=== PATIENT | male | born 2000 | race Caucasian/White ===

== ENCOUNTER 2024-02-08 13:28 | Emergency (ER) | payer OTHER, BC, SELFPAY ==
[2024-02-08] VITALS (7 sets, daily range): BP systolic 135–161; BP diastolic 73–99; PULSE 73–112; RESP 18; TEMP 36.6–36.9; O2SAT 94–100
[2024-02-08] MEDS: HYDROmorphone HCL INJ (*CRX) 1 MG/ML SYR IV PUSH (13:48)
[2024-02-08] MEDS: Please add drug allergy info to patient profile. XX (13:52)
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
[2024-02-08 14:21] LABS: Basophils Percent Auto 0.4 % (0.2-1.2); Eosinophils Absolute Auto 0.3 K/mm3 (0-0.3); Hematocrit 47.1 % (42.0-52.0); Hemoglobin 16.2 g/dL (14.0-18.0); Immature Granulocyte Absolute 0.03 K/mm3 (0.00-0.031); Immature Granulocyte Percent A 0.4 % (0-0.5); Lymphocytes Absolute Auto 2.35 K/mm3 (0.9-3.2); Lymphocytes Percent Auto 30.2 % (18.3-44.2); Mean Corpuscular HGB Conc 34.4 g/dl (32-36); Mean Corpuscular Hemoglobin 28.9 pg (26-34); Mean Platelet Volume 11.3 fl (7.4-10.4); Monocytes Absolute Auto 0.6 K/mm3 (0.1-0.6); Monocytes Percent Auto 7.8 % (2.6-8.5); Neutrophils Absolute Auto 4.5 K/mm3 (1.3-6.7); Neutrophils Percent Auto 57.2 % (45.5-73.1); Platelet Count Result 293 k/mm3 (150-375); Red Blood Count 5.61 M/mm3 (4.6-6.20); Red Cell Distribution Width 12.3 % (11.5-14.5); White Blood Count 7.8 K/mm3 (4.5-10.0)
[2024-02-08 14:28] LABS: Prothrombin Time 13.5 Seconds (11.1-14.7)
[2024-02-08 14:29] LABS: Partial Thromboplastin Time 26.6 Seconds (22.3-36.8)
[2024-02-08] MEDS: MORPHINE SULFATE (*CRX) 4 MG/ML INJ 6 MG IV PUSH (14:45)
[2024-02-08] MEDS: BACITRACIN OINTMENT 15 GM TUBE 1 APPLIC TOPICAL (14:45)
[2024-02-08 14:46] LABS: Anion Gap 4 mmol/L (4-12); Blood Urea Nitrogen 20 mg/dL (9-20); Calcium 9.3 mg/dL (8.4-10.2); Carbon Dioxide 27 mmol/L (22-30); Chloride 107 mmol/L (98-107); Estimated CRCL calculation 108 ml/min; Estimated Glomerular Filt Rate > 60; Glucose 117 mg/dL (65-110); Potassium 3.9 mmol/L (3.4-5.0); Sodium 138 mmol/L (137-145)
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
--- NOTE | 2024-02-08 16:14 | PC.NURSE ---
Patient able to void without difficulty
== END 2024-02-08 17:12 | disposition home or self-care (01) ==
PROVIDERS: Emergency Provider Student in an Organized Health Care Education/Training Program
DX: T21.26XA Burn of second degree of male genital region, initial encounter (principal); T31.0 Burns involving less than 10% of body surface; X06.2XXA Exposure to ignition of other clothing and apparel, initial encounter
CPT/HCPCS: 36415; 80048; 85025; 85610; 85730; 96374; 96375; 99284; A9270; J1171; J2270